=== PATIENT | female | born 1990 | race Caucasian/White ===

== ENCOUNTER 2020-02-21 09:52 | Inpatient (IN) | payer OTHER ==
[2020-02-20 15:57] VITALS: BMI 37.5
[2020-02-21] MEDS ORDERED: LACTATED RINGERS 1,000 ML IV ONE (10:13)
[2020-02-21] MEDS ORDERED: CITRIC ACID-SODIUM CITRATE 15 ML CUP PO ONE (10:13)
[2020-02-21] MEDS: LACTATED RINGERS 1,000 ML IV SCH ×2 (10:22→15:53)
[2020-02-21 10:23] LABS: Glucose,Whole Blood 89 mg/dL (75-99)
[2020-02-21 10:49] LABS: Basophils % (A) 0 %; Eosinophils # (A) 0.1 k/uL (0-0.7); Eosinophils % (A) 1 %; HCT 38.2 % (34.0-46.0); HGB 13.3 gm/dL (11.4-16.0); Lymphocytes # (A) 1.5 k/uL (1.0-4.8); Lymphocytes % (A) 18 %; MCHC 34.8 g/dL (31.0-37.0); Mean Platelet Volume 10.2; Monocytes # (A) 0.3 k/uL (0-1.0); Monocytes % (A) 4 %; Neutrophils # (A) 6.4 k/uL (1.3-7.7); Neutrophils % (A) 75 %; Platelet Count 174 k/uL (150-450); RDW 14.2 % (11.5-15.5); WBC 8.5 k/uL (3.8-10.6)
[2020-02-21] MEDS ORDERED: SUCCINYLCHOLINE CHLORIDE 100 MG/5 ML SYR IV ONE (11:57)
[2020-02-21] MEDS ORDERED: DEXAMETHASONE SOD PHOSPHATE 10 MG/ML 1 ML VIAL ONE (11:57)
[2020-02-21] MEDS ORDERED: GLYCOPYRROLATE 0.2 MG/ML 2 ML VIAL ONE (11:57)
[2020-02-21] MEDS ORDERED: ROCURONIUM 10 MG/ML (10 ML VIAL) IV ONE (11:57)
[2020-02-21] MEDS ORDERED: ONDANSETRON 4 MG/2 ML VIAL ONE (11:57)
[2020-02-21] MEDS ORDERED: KETOROLAC 15 MG/ML 1 ML VIAL ONE (11:57)
[2020-02-21] MEDS ORDERED: fentaNYL (PF) 50 MCG/ML 2 ML AMP ONE (11:57)
[2020-02-21] MEDS ORDERED: MORPHINE SULFATE (PF) 0.3 MG/0.3 ML SYR ONE (11:57)
[2020-02-21] MEDS ORDERED: HYDROcodone/APAP 5-325MG 1 EACH TAB PO PRN (13:15)
[2020-02-21] MEDS ORDERED: HYDROcodone/APAP 7.5-325MG 1 EACH TAB PO PRN (13:15)
[2020-02-21] MEDS ORDERED: METOCLOPRAMIDE 5 MG/ML 2 ML VIAL IVP PRN (13:15)
[2020-02-21] MEDS ORDERED: diphenhydrAMINE 25 MG CAP PO PRN (13:15)
[2020-02-21] MEDS ORDERED: SIMETHICONE 80 MG CHEWABLE PO PRN (13:15)
[2020-02-21] MEDS ORDERED: diphenhydrAMINE 50 MG/ML 1 ML VIAL IVP PRN ×2 (13:15)
[2020-02-21] MEDS ORDERED: diphenhydrAMINE 50 MG CAP PO PRN (13:15)
[2020-02-21] MEDS ORDERED: OXYTOCIN 20 UNITS/1000 ML NS 1,000 ML IV SCH (13:15)
[2020-02-21] MEDS ORDERED: LANOLIN CREAM 5 GM TUBE TOPICAL PRN (13:15)
[2020-02-21] MEDS ORDERED: HYDROmorphone PCA 10 MG/50 ML BAG IV PRN (13:15)
[2020-02-21] MEDS ORDERED: KETOROLAC 15 MG/ML 1 ML VIAL IVP PRN (13:15)
[2020-02-21] MEDS ORDERED: ONDANSETRON 4 MG/2 ML VIAL IVP PRN (13:15)
[2020-02-21] MEDS ORDERED: ZOLPIDEM 5 MG TAB PO PRN (13:15)
[2020-02-21] MEDS ORDERED: NALOXONE 0.4 MG/ML 1 ML VIAL IV PRN ×2 (13:15→13:53)
--- NOTE | 2020-02-21 13:21 | P.HPOB ---
History of Present Illness H&P Date: 02/21/20 Chief Complaint: 39-2/7 weeks, previous section, requesting repeat The patient is a 29-year-old 2 para 1001 admitted at 39-2/7 weeks by good dating parameters. She is admitted for repeat section having had a previous section and requesting repeat. Her has been Dated by gestational diabetes for which she has had excellent diet control throughout. There were no other complications and group B strep status is negative. Obstetrical history: 2 para 1001 with 1 term section for macrosomia. Her statistics are listed in history present illness. EDC of 02/26/2020 was established by last menstrual period and confirmed by 19 week ultrasound. Laboratory workup done Schutze blood type of A+ with a negative antibody screen. Rubella status is immune. The remainder of the laboratory workup was within normal limits. Early Glucola was elevated followed by an elevated three-hour glucose tolerance test making the diagnosis of gestational diabetes. Group B strep status is negative. 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 Review of Systems Review of systems is confined to history of present illness. Past Medical History Past Medical History: No Reported History Additional Past Medical History / Comment(s): gestational diabetes History of Any Multi-Drug Resistant Organisms: None Reported Past Surgical History: Section Past Anesthesia/Blood Transfusion Reactions: No Reported Reaction Past Psychological History: No Psychological Hx Reported Smoking Status: Former smoker Past Alcohol Use History: None Reported Additional Past Alcohol Use History / Comment(s): quit smoking Dec 2019,smoked approx 15 yrs Past Drug Use History: None Reported - Past Family History Mother Family Medical History: No Reported History Father History Unknown: Yes Family Medical History: Diabetes Mellitus, Hypertension Medications and Allergies Home Medications Medication Instructions Recorded Confirmed Type Pnv,Calcium 72/Iron/Folic Acid 1 tab PO DAILY 09/12/14 02/21/20 History [ Plus Tablet] Allergies Allergy/AdvReac Type Severity Reaction Status Date / Time No Known Allergies Allergy Verified 02/21/20 10:13 Exam Vital Signs Temp Pulse Resp BP Pulse Ox 02/21/20 10:12 96.5 F L 102 H 16 140/86 98 Intake and Output 02/20/20 02/21/20 02/21/20 22:59 06:59 14:59 Other: Weight 102.512 kg 102.512 kg In general, this is a well-developed, well-nourished white female in no acute distress. Her heart has a regular rhythm and rate without murmur. Her lungs are clear to auscultation bilaterally in all moore. Her abdomen is gravid, nondistended, has normal active bowel sounds, is soft, nontender, and without any palpable masses aside from uterine fundus. Her strep is without any cyanosis, clubbing, or significant edema and are nontender to palpation bilaterally. Digital cervical examination is deferred. Results Result Diagrams: 02/21/20 10:25 Assessment and Plan (1) Previous section Current Visit: Yes Status: Acute Code(s): Z98.891 - HISTORY OF UTERINE SCAR FROM PREVIOUS SURGERY SNOMED Code(s): 799976172 (2) Term Current Visit: Yes Status: Acute Code(s): Z34.80 - ENCOUNTER FOR SUPRVSN OF NORMAL , UNSP TRIMESTER SNOMED Code(s): 78314328 Plan: The patient is admitted for repeat low transverse section. Uterus and, occasions the procedure been thoroughly discussed and she has understood and agreed to proceed.
--- NOTE | 2020-02-21 13:27 | P.OP ---
Date of Procedure: 02/21/20 Preoperative Diagnosis: #1. 39-2/7 weeks, previous section #2. Gestational diabetes Postoperative Diagnosis: Same Procedure(s) Performed: #1. Repeat low transverse section Anesthesia: LORAINE Surgeon: Vinicius Littlejohn Port Crane Operator #1: Narcisa Gray Estimated Blood Loss (ml): 680 IV fluids (ml): 1,000 Urine output (ml): 400 Pathology: none sent Condition: stable Disposition: floor Operative Findings: The patient was taken the operating room where she was delivered of a viable 8 lbs. 0 oz. baby girl with Apgars of 9 at 1 minute and 9 at 5 minutes delivered in the occiput anterior position. The placenta was delivered manually, intact, and grossly normal with a grossly normal three-vessel cord. The uterus, tubes, and ovaries were entirely normal to inspection. There is mild to moderate amount of scarring at the level of the fascia and rectus muscles. Description of Procedure: The patient was prepped and draped in usual fashion after spinal anesthesia was administered by the anesthesiologist. The spinal failed to achieve adequate levels and the patient was then provided with general endotracheal anesthesia. Once the endotracheal tube had been placed and secured a Pfannenstiel incision was made through pre-existing scar and extended into the abdominal cavity without difficulty. The bladder peritoneum was elevated, incised, and reflected distally. A 2 cm incision was made in the transverse plane of the lower uterine segment to enter the uterus at which time clear fluid was noted. The incision was extended bluntly in both directions. The head was delivered up and through the incision where the nose and mouth were thoroughly suctioned. Remainder of the was delivered onto the field where the cord was doubly clamped, cut, and the infant passed for resuscitative measures with weight and Apgars as noted above. A segment of cord was doubly clamped, cut, and set aside should cord gases become necessary. The placenta was delivered manually and intact as noted above. The uterus was exteriorized and the interior cavity of the uterus swept of any remaining placental or membranous fragments. The margins of the uterine incision were grasped with Ball clamps and the incision closed in 2 layers. First layer was a running locking stitch of 0 chromic catgut followed by a running imbricating stitch of 0 chromic catgut, each from margin to margin. The posterior cul-de-sac was suctioned with a guard and the uterine and ovarian findings were normal as noted above. Uterus was replaced within the abdominal cavity and the gutters swept of any remaining blood, fluid, or clot. There was a point of bleeding at the left angle the incision which was made hemostatic with a eeniyx-js-gcvdw stitch of 0 chromic catgut. After ensuring adequate hemostasis, the parietal peritoneum was loosely reapproximated and layer of muscles examined and found to be hemostatic. The fascia was closed with 2 running stitches of 0 Vicryl proceeding from the lateral margins to the midpoint. The subcutaneous tissues were irrigated, made hemostatic with the Bovie, and reapproximated with a running stitch of 30 plain catgut. The skin was reapproximated with a running subcuticular stitch of 4-0 Vicryl followed by half-inch Steri-Strips placed with Mastisol. Estimated blood loss for the case was approximately 680 mL. There were no complications aside from the ineffective spinal anesthesia requiring Gen. endotracheal anesthesia. All sponge, instrument, needle counts were correct. The patient tolerated the procedure well and proceeded to the recovery room in stable condition. Both mother and infant are resting comfortably in recovery.
[2020-02-21] MEDS ORDERED: MORPHINE SULFATE 2 MG/ML SYRINGE IVP PRN (13:53)
[2020-02-21 16:16] LABS: Hemoglobin A1C 5.1 % (4.0-6.0)
[2020-02-21] MEDS: SENNOSIDES-DOCUSATE SODIUM 1 EACH TAB PO SCH (21:18)
[2020-02-22] MEDS: LACTATED RINGERS 1,000 ML IV SCH ×3 (00:18→21:13)
[2020-02-22 07:34] LABS: Basophils % (A) 0 %; Eosinophils # (A) 0.1 k/uL (0-0.7); Eosinophils % (A) 1 %; HCT 33.7 % (34.0-46.0); HGB 11.5 gm/dL (11.4-16.0); Lymphocytes # (A) 1.9 k/uL (1.0-4.8); Lymphocytes % (A) 17 %; MCH 30.6 pg (25.0-35.0); Mean Platelet Volume 10.4; Monocytes # (A) 0.5 k/uL (0-1.0); Monocytes % (A) 4 %; Neutrophils # (A) 8.8 k/uL (1.3-7.7); Neutrophils % (A) 77 %; Platelet Count 152 k/uL (150-450); RBC 3.75 m/uL (3.80-5.40); RDW 14.5 % (11.5-15.5); WBC 11.5 k/uL (3.8-10.6)
--- NOTE | 2020-02-22 08:25 | P.PNOBGPC ---
Subjective - Subjective Patient reports: Reports appetite normal, Reports voiding normally, Reports pain well controlled, Reports ambulating normally : doing well Objective - Vital Signs Latest vital signs: Vital Signs Temp Pulse Resp BP Pulse Ox 02/22/20 05:32 18 02/22/20 04:31 18 02/22/20 04:30 97.9 F 94 18 120/61 95 02/22/20 02:28 16 02/22/20 00:00 97.7 F 78 18 116/65 96 02/21/20 22:00 18 97 02/21/20 20:30 97.9 F 92 16 117/74 96 02/21/20 18:00 16 02/21/20 16:53 16 02/21/20 15:43 82 16 116/69 98 02/21/20 15:13 80 16 132/79 96 02/21/20 14:53 98 02/21/20 14:43 85 16 119/64 96 02/21/20 14:28 75 16 125/58 99 02/21/20 14:13 82 16 132/76 100 02/21/20 13:58 74 16 124/73 100 02/21/20 13:53 16 100 02/21/20 13:43 96.5 F L 85 16 133/89 96 02/21/20 10:12 96.5 F L 102 H 16 140/86 98 Intake and Output 02/21/20 02/22/20 02/22/20 22:59 06:59 14:59 Output Total 3400 Balance -3400 Output: Urine 3400 Uretheral (Chu) 1200 Other: # Voids 1 - Exam Extremities: Present: normal Abdomen: Present: normal appearance, soft. Absent: distention, tenderness Incision: Present: normal, dry, intact Uterus: Present: normal, firm (The uterine fundus is tonic and appropriate tender just below the umbilicus.) - Labs Labs: Abnormal Lab Results - Last 24 Hours (Table) 02/22/20 Range/Units 07:02 WBC 11.5 H (3.8-10.6) k/uL RBC 3.75 L (3.80-5.40) m/uL Hct 33.7 L (34.0-46.0) % Neutrophils # 8.8 H (1.3-7.7) k/uL Assessment and Plan (1) Previous section Current Visit: Yes Status: Acute Code(s): Z98.891 - HISTORY OF UTERINE SCAR FROM PREVIOUS SURGERY SNOMED Code(s): 023990209 (2) Term Current Visit: Yes Status: Acute Code(s): Z34.80 - ENCOUNTER FOR SUPRVSN OF NORMAL , UNSP TRIMESTER SNOMED Code(s): 74166084 (3) S/P section Current Visit: Yes Status: Acute Code(s): Z98.89 - OTHER SPECIFIED POSTPROCEDURAL STATES * DO NOT USE * SNOMED Code(s): 126320618 Plan: Continue routine postoperative care. 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 She is tolerating regular diet at this time. I would anticipate discharge home tomorrow pending no complications.
[2020-02-22] MEDS: IBUPROFEN 600 MG TAB PO PRN ×3 (08:32→23:49)
[2020-02-22] MEDS: SENNOSIDES-DOCUSATE SODIUM 1 EACH TAB PO SCH ×2 (08:32→20:29)
[2020-02-22] MEDS: ACETAMINOPHEN TAB 325 MG TAB PO PRN ×2 (11:17→20:28)
[2020-02-23] MEDS: ACETAMINOPHEN TAB 325 MG TAB PO PRN (04:39)
[2020-02-23 08:19] VITALS: BP 142/81; PULSE 91; RESP 18; TEMP 97.9
--- NOTE | 2020-02-23 08:39 | P.DS ---
Providers Date of admission: 02/21/20 09:52 Expected date of discharge: 02/23/20 Attending physician: Vinicius Littlejohn Primary care physician: Stated None - Discharge Diagnosis(es) (1) Previous section Current Visit: Yes Status: Acute (2) Term Current Visit: Yes Status: Acute (3) S/P section Current Visit: Yes Status: Acute Hospital Course: The patient is a 29-year-old 2 para 1001 admitted at 39-2/7 weeks by good dating parameters. She is admitted for repeat section with all signs reassuring. Her was complicate by gestational diabetes with excellent diet control throughout. Group B strep status was negative. She was taken the operating room where she was delivered by repeat low transverse section of a viable 8 lbs. 0 oz. baby girl with Apgars of 9 at 1 minute and 9 at 5 minute. Her postoperative course has been unremarkable with vital signs remained stable and her temperature was afebrile throughout. She was deemed stable for discharge on postoperative and day #2 and was discharged home to follow-up in the office in 2 weeks for an incision check and 6 weeks routinely. Discharge instructions included calling for any signifi cantly increased bleeding or foul-smelling lochia, significantly increased fever abdominal pain,. Complaints, breast complaints, incisional complaints, or anything else that concerned her. She was additionally instructed to have nothing in vagina for at least 6 weeks time to include intercourse and to abstain from any heavy lifting over the same period of time. She is Maria Eugenia instructed to do no driving until off of all pain medications or 2 weeks' time, whichever came first. She understood her instructions and agrees to follow up as noted above. Discharge medications included continued vitamins as she has opted to breast-feed as well as a prescription for [place] 5/325 mg, 1-2 by mouth every 6 hours when necessary pain, #20 dispensed with no refills. She was otherwise to use [id number]-ont-ndtnesm analgesic pain medications as needed. Maternal blood type is A+ and rubella status is immune. Discharge hemoglobin and hematocrit were 11.5 and 33.7 respectively. Patient Condition at Discharge: Stable Plan - Discharge Summary Discharge Rx Participant: No New Discharge Prescriptions: No Action Pnv,Calcium 72/Iron/Folic Acid [ Plus Tablet] 1 tab PO DAILY Discharge Medication List Pnv,Calcium 72/Iron/Folic Acid [ Plus Tablet] 1 tab PO DAILY 09/12/14 [History] Follow up Appointment(s)/Referral(s): Vinicius Littlejohn MD [STAFF PHYSICIAN] - 2 Weeks Discharge Disposition: HOME SELF-CARE
[2020-02-23] MEDS: IBUPROFEN 600 MG TAB PO PRN (09:03)
== END 2020-02-23 10:30 | disposition home or self-care (01) | DRG 788 ==
LOC: 4FBP 09:52 → MERGE 12:00
PROVIDERS: ADMIT Obstetrics & Gynecology; ATTEND Obstetrics & Gynecology
PROC: 10D00Z1 Extraction of Products of Conception, Low, Open Approach (ICD-10-PCS; principal; 2020-02-21 12:00)
DX: O34.211 Maternal care for low transverse scar from previous cesarean delivery (principal); O24.420 Gestational diabetes mellitus in childbirth, diet controlled; Z37.0 Single live birth; Z3A.39 39 weeks gestation of pregnancy; Z82.49 Family history of ischemic heart disease and other diseases of the circulatory system; Z83.3 Family history of diabetes mellitus; Z87.891 Personal history of nicotine dependence
CPT/HCPCS: 83036; 85025; 86850; 86900; 86901

== ENCOUNTER 2020-02-26 21:05 | Emergency (ER) | payer OTHER ==
[2020-02-26] MEDS ORDERED: KETOROLAC 15 MG/ML 1 ML VIAL IVP STA (21:56)
--- NOTE | 2020-02-26 22:45 | XR ---
EXAMINATION TYPE: XR chest 2V DATE OF EXAM: 02/26/2020 COMPARISON: NONE HISTORY: Short of breath TECHNIQUE: 2 views FINDINGS: Heart and mediastinum are normal. Lungs are clear. Diaphragm is normal. There is mild thora cic dextroscoliosis. There are no hilar masses. IMPRESSION: No active cardiopulmonary disease.
[2020-02-26 23:09] LABS: Basophils # (A) 0.1 k/uL (0-0.2); Basophils % (A) 1 %; Eosinophils # (A) 0.3 k/uL (0-0.7); Eosinophils % (A) 3 %; HCT 34.5 % (34.0-46.0); HGB 11.6 gm/dL (11.4-16.0); Lymphocytes # (A) 1.9 k/uL (1.0-4.8); Lymphocytes % (A) 20 %; MCHC 33.7 g/dL (31.0-37.0); MCV 88.9 fL (80.0-100.0); Mean Platelet Volume 8.8; Monocytes # (A) 0.3 k/uL (0-1.0); Monocytes % (A) 3 %; Neutrophils # (A) 6.7 k/uL (1.3-7.7); Neutrophils % (A) 71 %; Platelet Count 227 k/uL (150-450); RBC 3.88 m/uL (3.80-5.40); RDW 13.7 % (11.5-15.5); WBC 9.4 k/uL (3.8-10.6)
[2020-02-26 23:12] LABS: Appearance,Urine Clear (Clear); Bilirubin,Urine Negative (Negative); Blood,Urine Small (Negative); Color,Urine Yellow; Glucose,Urine (UA) Negative (Negative); Ketones,Urine Negative (Negative); Leukocyte Esterase,Urine Negative (Negative); Mucus,Urine Rare /hpf; Nitrite,Urine Negative (Negative); PH, Urine 6.5 (5.0-8.0); Protein,Urine Negative (Negative); RBC,Urine 2 /hpf (0-5); Specific Gravity,Urine 1.017 (1.001-1.035); Squamous Epithelial Cell,Urine <1 /hpf (0-4); WBC,Urine 1 /hpf (0-5)
--- NOTE | 2020-02-26 23:21 | US ---
EXAMINATION TYPE: US venous doppler duplex LE LT DATE OF EXAM: 02/26/2020 9:59 PM COMPARISON: NONE CLINICAL HISTORY: LLE swelling s/p . LLE swelling SIDE PERFORMED: Left TECHNIQUE: The lower extremity deep venous system is examined utilizing real time linear array sonog mariela with graded compression, doppler sonography and color-flow sonography. VESSELS IMAGED: Common Femoral Vein Deep Femoral Vein Greater Saphenous Vein * Femoral Vein Popliteal Vein Small Saphenous Vein * Proximal Calf Veins (* superficial vessels) Left Leg: Negative for DVT IMPRESSION: No evidence of deep vein thrombosis in the left leg.
[2020-02-26 23:32] LABS: ALT 22 U/L (4-34); AST 24 U/L (14-36); African American GFR (CKD) >90 (>60 ml/min/1.73 sqM); Alkaline Phosphatase 179 U/L (38-126); Anion Gap 4 mmol/L; Blood Urea Nitrogen 13 mg/dL (7-17); Calcium 8.3 mg/dL (8.4-10.2); Carbon Dioxide 21 mmol/L (22-30); Chloride 113 mmol/L (98-107); Glucose 98 mg/dL (74-99); LDH 737 U/L (313-618); Non-African American GFR(CKD) >90 (>60 ml/min/1.73 sqM); Potassium 4.1 mmol/L (3.5-5.1); Sodium 138 mmol/L (137-145); Total Bilirubin 0.4 mg/dL (0.2-1.3); Total Protein 5.8 g/dL (6.3-8.2); Uric Acid 5.3 mg/dL (3.7-7.4)
--- NOTE | 2020-02-26 23:54 | ED ---
General Adult HPI - General Chief complaint: Extremity Problem,Nontraumatic Stated complaint: Left leg swelling Time Seen by Provider: 02/26/20 21:15 Source: family Mode of arrival: ambulatory Limitations: no limitations - History of Present Illness Initial comments: 29-year-old female patient presents to the emergency department today for evaluation of lower extremity edema. Patient is 5 days post after a delivery with Dr. Littlejohn. Patient reports that she has had swelling to the lower extremities since discharge. She states that the swelling in the right leg seems to improve with the left did not. Patient states she feels like her leg is tight and tingly. States she is having mild discomfort to the calf region. She denies any shortness of breath, cough, or congestion. Denies any chest pain. She is reporting mild headache today. She is breast-feeding. Denies any pain or discharge to her abdominal incision. Denies any urinary symptoms. Patient denies any recent rash, fever, chills, abdominal pain, nausea, vomiting, diarrhea, constipation, back pain, dizziness, weakness, hematuria, dysuria, urinary urgency, urinary frequency, headache, visual changes, or any other complaints. - Related Data Home Medications Medication Instructions Recorded Confirmed Pnv,Calcium 72/Iron/Folic Acid 1 tab PO DAILY 09/12/14 02/21/20 [ Plus Tablet] Allergies Allergy/AdvReac Type Severity Reaction Status Date / Time No Known Allergies Allergy Verified 02/26/20 21:12 Review of Systems ROS Statement: Those systems with pertinent positive or pertinent negative responses have been documented in the HPI. ROS Other: All systems not noted in ROS Statement are negative. Past Medical History Past Medical History: No Reported History Additional Past Medical History / Comment(s): gestational diabetes History of Any Multi-Drug Resistant Organisms: None Reported Past Surgical History: Section, No Surgical Hx Reported Past Anesthesia/Blood Transfusion Reactions: No Reported Reaction Past Psychological History: No Psychological Hx Reported Smoking Status: Former smoker Past Alcohol Use History: None Reported Past Drug Use History: None Reported - Past Family History Mother Family Medical History: No Reported History Father History Unknown: Yes Family Medical History: Diabetes Mellitus, Hypertension General Exam Limitations: no limitations General appearance: alert, in no apparent distress, other (This is a well- developed, well-nourished adult female patient in no acute distress. Vital signs upon presentation temperature 97.9F, pulse 103, respirations 18, blood pressure 140/88, pulse ox 99% on room air.) Eye exam: Present: normal appearance, PERRL, EOMI. Absent: scleral icterus, conjunctival injection, periorbital swelling ENT exam: Present: normal exam, normal oropharynx, mucous membranes moist Respiratory exam: Present: normal lung sounds bilaterally. Absent: respiratory distress, wheezes, rales, rhonchi, stridor Cardiovascular Exam: Present: regular rate, normal rhythm, normal heart sounds. Absent: systolic murmur, diastolic murmur, rubs, gallop, clicks GI/Abdominal exam: Present: soft, normal bowel sounds. Absent: distended, tenderness, guarding, rebound, rigid Extremities exam: Present: full ROM, normal capillary refill, other (There is generalized nonpitting edema noted to the left lower extremity, trace nonpitting edema noted to the right lower extremity. Skin to the legs is pink, warm, dry. Cap refills less than 3 seconds. Pedal and posttibial pulses are 2+ and equal bilaterally.). Absent: normal inspection, tenderness, pedal edema, joint swelling, calf tenderness Neurological exam: Present: alert, oriented X3, CN II-XII intact Psychiatric exam: Present: normal affect, normal mood Skin exam: Present: warm, dry, intact, normal color. Absent: rash Course Vital Signs 02/26/20 02/27/20 21:06 00:03 Temperature 97.9 F 98.2 F Pulse Rate 103 H 90 Respiratory 18 16 Rate Blood Pressure 140/88 117/74 O2 Sat by Pulse 99 96 Oximetry Medical Decision Making - Medical Decision Making 29-year-old female patient presents to the emergency department today for evalua tion of lower extremity swelling worse on the left side. Patient is also reporting mild headache. Physical examination did reveal mild nonpitting edema to the left leg, trace nonpitting edema to the right leg. Neurovascular status was intact. Labs reviewed and did reveal mildly elevated alk phos and LDH. Uric acid was negative. Patient no protein in the urine. Blood pressure initially elevated at 140/88 did decrease to 117/74. I did ultrasound the leg, was negative for DVT. Chest xray shows no evidence for pulmonary edema. Did discuss findings and results with the patient. We did discuss elevation of the legs and use of compression stockings. She is instructed to follow-up with her COLLEGE ADMINISTRATOR for recheck in 1-2 days. Return parameters were discussed in detail. She verbalizes understanding and agrees with this plan. - Lab Data Result diagrams: 02/26/20 22:33 02/26/20 22:33 Lab Results 02/26/20 02/26/20 02/26/20 Range/Units 22:33 22:33 22:33 WBC 9.4 (3.8-10.6) k/uL RBC 3.88 (3.80-5.40) m/uL Hgb 11.6 (11.4-16.0) gm/dL Hct 34.5 (34.0-46.0) % MCV 88.9 (80.0-100.0) fL MCH 30.0 (25.0-35.0) pg MCHC 33.7 (31.0-37.0) g/dL RDW 13.7 (11.5-15.5) % Plt Count 227 (150-450) k/uL MPV 8.8 Neutrophils % 71 % Lymphocytes % 20 % Monocytes % 3 % Eosinophils % 3 % Basophils % 1 % Neutrophils # 6.7 (1.3-7.7) k/uL Lymphocytes # 1.9 (1.0-4.8) k/uL Monocytes # 0.3 (0-1.0) k/uL Eosinophils # 0.3 (0-0.7) k/uL Basophils # 0.1 (0-0.2) k/uL Sodium 138 (137-145) mmol/L Potassium 4.1 (3.5-5.1) mmol/L Chloride 113 H (98-107) mmol/L Carbon Dioxide 21 L (22-30) mmol/L Anion Gap 4 mmol/L BUN 13 (7-17) mg/dL Creatinine 0.66 (0.52-1.04) mg/dL Est GFR (CKD-EPI)AfAm >90 (>60 ml/min/1.73 sqM) Est GFR (CKD-EPI)NonAf >90 (>60 ml/min/1.73 sqM) Glucose 98 (74-99) mg/dL Uric Acid 5.3 (3.7-7.4) mg/dL Calcium 8.3 L (8.4-10.2) mg/dL Total Bilirubin 0.4 (0.2-1.3) mg/dL AST 24 (14-36) U/L ALT 22 (4-34) U/L Alkaline Phosphatase 179 H (38-126) U/L Lactate Dehydrogenase 737 H (313-618) U/L Total Protein 5.8 L (6.3-8.2) g/dL Albumin 3.0 L (3.5-5.0) g/dL Urine Color Yellow Urine Appearance Clear (Clear) Urine pH 6.5 (5.0-8.0) Ur Specific [place] 1.017 (1.001-1.035) Urine Protein Negative (Negative) Urine Glucose (UA) Negative (Negative) Urine Ketones Negative (Negative) Urine Blood Small H (Negative) Urine Nitrite Negative (Negative) Urine Bilirubin Negative (Negative) Urine Urobilinogen 3.0 (<2.0) mg/dL Ur Leukocyte Esterase Negative (Negative) Urine RBC 2 (0-5) /hpf Urine WBC 1 (0-5) /hpf Ur Squamous Epith Cells <1 (0-4) /hpf Urine Mucus Rare H (None) /hpf - Radiology Data Radiology results: report reviewed, image reviewed Two-view x-ray of the chest is obtained. Report was reviewed in its entirety. Impression by Dr. Kohler shows no active cardiopulmonary disease. Ultrasound of the left lower trauma he was obtained. Report is reviewed in its entirety. Impression by Dr. Kohler shows no evidence of deep pain thrombosis in the left leg. Disposition Clinical Impression: Lower extremity edema Disposition: HOME SELF-CARE Condition: Good Instructions (If sedation given, give patient instructions): Leg Edema (ED) Additional Instructions: Keep legs elevated. Consider obtaining compression socks. Follow-up with your COLLEGE ADMINISTRATOR for recheck in 1-2 days. Return to the emergency department immediately for any new, worsening, or concerning symptoms. Is patient prescribed a controlled substance at d/c from ED?: No Referrals: Rebekah Hugo MD [Primary Care Provider] - 1-2 days Vinicius Littlejohn MD [STAFF PHYSICIAN] - 1-2 days Time of Disposition: 23:53
[2020-02-27 00:05] VITALS: BP 117/74; PULSE 90; RESP 16; TEMP 98.2
== END 2020-02-27 00:12 | disposition home or self-care (01) ==
LOC: EC 21:05
DX: R60.0 Localized edema (principal); R51.9 Headache, unspecified; M79.89 Other specified soft tissue disorders; R74.8 Abnormal levels of other serum enzymes; R74.02 Elevation of levels of lactic acid dehydrogenase [LDH]; Z87.891 Personal history of nicotine dependence
CPT/HCPCS: 36415; 80053; 83615; 84550; 85025; 81001; 71046; 93971; 99284; 96374; J1885

== ENCOUNTER 2023-10-05 09:50 | Inpatient (IN) | payer BC, OTHER ==
[2023-10-05] MEDS ORDERED: TRANEXAMIC 1,000 MG/100ML-NACL 1,000 MG in EMPTY BAG 1 BAG IV PRN (10:23)
[2023-10-05] MEDS ORDERED: OXYTOCIN 10 UNIT/ML 1 ML VIAL IM PRN (10:23)
[2023-10-05] MEDS ORDERED: CARBOPROST TROMETHAMINE 250 MCG/ML 1 ML AMP IM PRN (10:23)
[2023-10-05] MEDS ORDERED: miSOPROStoL 200 MCG TAB PO PRN (10:23)
[2023-10-05] MEDS ORDERED: METHYLERGONOVINE 0.2 MG/ML 1 ML AMP IM PRN (10:23)
[2023-10-05 10:41] VITALS: RESP 16
[2023-10-05 11:19] LABS: Basophils % (A) 0 %; Eosinophils # (A) 0.1 k/uL (0-0.7); Eosinophils % (A) 1 %; HCT 38.8 % (34.0-46.0); HGB 12.6 gm/dL (11.4-16.0); Lymphocytes # (A) 1.6 k/uL (1.0-4.8); Lymphocytes % (A) 17 %; MCH 29.7 pg (25.0-35.0); MCHC 32.5 g/dL (31.0-37.0); MCV 91.4 fL (80.0-100.0); Monocytes # (A) 0.4 k/uL (0-1.0); Monocytes % (A) 4 %; Neutrophils # (A) 7.2 k/uL (1.3-7.7); Neutrophils % (A) 76 %; Platelet Count 162 k/uL (150-450); RBC 4.24 m/uL (3.80-5.40); RDW 14.3 % (11.5-15.5); WBC 9.4 k/uL (3.8-10.6)
[2023-10-05] MEDS: LACTATED RINGERS 1,000 ML IV ONE (11:23)
[2023-10-05] MEDS: CITRIC ACID-SODIUM CITRATE 15 ML CUP PO ONE (16:12)
--- NOTE | 2023-10-05 16:19 | P.HPOB ---
History of Present Illness H&P Date: 10/05/23 Chief Complaint: 37+ weeks, previous x 2, spontaneous rupture of m embranes Patient is a 33-year-old 3 para 2-0-0-2 admitted at 37+ weeks as established by last menstrual period and confirmed by 7-week ultrasound. She is admitted with documented spontaneous rupture of membranes for clear fluid. Upon admission, all signs are reassuring with a category 1 heart rate tracing. She is having occasional contractions but not in labor. She has a history of 2 previous sections and has requested a repeat section with intraoperative bilateral tubal ligation, more specifically bilateral salpingectomy. Her was otherwise uncomplicated and group B strep status is negative. Obstetrical history: 3 para 2-0-0-2 with 2 term sections as noted above. EDC of 10/24/2023 was established by last menstrual period con firmed by 7-week ultrasound. Laboratory workup demonstrates a blood type of A+ with a negative antibody screen. Rubella status is immune. The remainder of the laboratory workup was within normal limits. fraction testing was negative for trisomy or any other findings. 1 hour Glucola was within normal limits and group B strep status is negative. Gynecologic history: Unremarkable with no history of any infections to include STDs. Review of Systems Symptoms is confined to history of present illness. Past Medical History Past Medical History: No Reported History Additional Past Medical History / Comment(s): gestational diabetes History of Any Multi-Drug Resistant Organisms: None Reported Past Surgical History: Section Past Anesthesia/Blood Transfusion Reactions: No Reported Reaction Past Psychological History: No Psychological Hx Reported Smoking Status: Current every day smoker Past Alcohol Use History: None Reported Past Drug Use History: None Reported - Past Family History Mother Family Medical History: No Reported History Father History Unknown: Yes Family Medical History: Diabetes Mellitus, Hypertension Medications and Allergies Home Medications Medication Instructions Recorded Confirmed Type Pnv,Calcium 72/Iron/Folic Acid 1 tab PO DAILY 09/12/10/05/23 History [ Plus Tablet] Allergies Allergy/AdvReac Type Severity Reaction Status Date / Time No Known Allergies Allergy Verified 10/05/23 10:02 Exam Vital Signs Temp Pulse Resp BP Pulse Ox 10/05/23 11:02 97.3 F L 100 16 130/77 100 10/05/23 10:36 97.3 F L 100 16 130/77 100 Intake and Output 10/05/23 10/05/23 10/05/23 06:59 14:59 22:59 Other: Weight 99.79 kg General, this is a well-developed, well-nourished white female in no acute distress. Her heart has a regular rhythm and rate without murmur. Her lungs are clear to auscultation bilaterally in all moore. Her abdomen is gravid, nondistended, has normal active bowel sounds, soft, nontender, and without any palpable masses aside from the uterine fundus. Her extremities are without any cyanosis, clubbing, or edema and are nontender to palpation bilaterally. Digital cervical examination is deferred. Results Result Diagrams: 10/05/23 10:35 Assessment and Plan (1) Family planning Current Visit: Yes Status: Acute Code(s): Z30.09 - ENCOUNTER FOR OT GENERAL CNSL AND ADVICE ON CONTRACEPTION SNOMED Code(s): 183131415 (2) Spontaneous rupture of amniotic membranes Current Visit: Yes Status: Acute Code(s): PLE1463 - SNOMED Code(s): 928572624 (3) Previous section Current Visit: Yes Status: Acute Code(s): Z98.891 - HISTORY OF UTERINE SCAR FROM PREVIOUS SURGERY SNOMED Code(s): 414978281 (4) Term Current Visit: Yes Status: Acute Code(s): Z34.80 - ENCOUNTER FOR SUPRVSN OF NORMAL , UNSP TRIMESTER SNOMED Code(s): 75895836 Plan: Patient is admitted for repeat low-transverse section with intraoperative bilateral salpingectomy. The risks and complications of these procedures have been thoroughly discussed and she has understood and agreed to proceed.
[2023-10-05] MEDS ORDERED: PHENYLEPHRINE-0.9% NACL SYG 1,000 MCG/10 ML SYRINGE ONE (16:52)
[2023-10-05] MEDS ORDERED: ONDANSETRON 4 MG/2 ML VIAL ONE (16:52)
[2023-10-05] MEDS ORDERED: OXYTOCIN 30 UNITS/500 ML NS BAG IV ONE (16:52)
[2023-10-05] MEDS ORDERED: MORPHINE SULFATE (PF) 0.3 MG/0.3 ML SYR ONE (16:52)
[2023-10-05] MEDS ORDERED: KETOROLAC 15 MG/ML 1 ML VIAL ONE (16:52)
[2023-10-05] MEDS ORDERED: LANOLIN CREAM 1 GM TUBE TOPICAL PRN (17:51)
[2023-10-05] MEDS ORDERED: KETOROLAC 15 MG/ML 1 ML VIAL IVP PRN (17:51)
[2023-10-05] MEDS ORDERED: ZOLPIDEM 5 MG TAB PO PRN (17:51)
[2023-10-05] MEDS ORDERED: diphenhydrAMINE 25 MG CAP PO PRN (17:51)
[2023-10-05] MEDS ORDERED: diphenhydrAMINE 50 MG CAP PO PRN (17:51)
[2023-10-05] MEDS ORDERED: METOCLOPRAMIDE 5 MG/ML 2 ML VIAL IVP PRN (17:51)
[2023-10-05] MEDS ORDERED: NALOXONE 0.4 MG/ML 1 ML VIAL IV PRN (17:51)
[2023-10-05] MEDS ORDERED: ONDANSETRON 4 MG/2 ML VIAL IVP PRN (17:51)
[2023-10-05] MEDS ORDERED: diphenhydrAMINE 50 MG/ML 1 ML VIAL IVP PRN ×2 (17:51)
[2023-10-05] MEDS ORDERED: SIMETHICONE 80 MG CHEWABLE PO PRN (17:51)
[2023-10-05] MEDS ORDERED: OXYTOCIN 30 UNITS/500 ML NS 30 UNIT in SALINE 1 500ML.BAG IV SCH (18:00)
--- NOTE | 2023-10-05 18:00 | P.OP ---
Date of Procedure: 10/05/23 Preoperative Diagnosis: #1. 37-2/7 weeks, previous section x 2 #2. Spontaneous rupture of membranes #3. Undesired fertility Postoperative Diagnosis: Same Procedure(s) Performed: #1. Repeat low-transverse section #2. Intraoperative bilateral salpingectomy Anesthesia: spinal Surgeon: Vinicius Littlejohn Vacuum Cleaner Repairer #1: Narcisa Gray Estimated Blood Loss (ml): 210 IV fluids (ml): 800 Urine output (ml): 200 Pathology: other (Bilateral fallopian tubes) Condition: stable Disposition: floor Operative Findings: Patient was taken to the operating room where she was delivered of a viable 7 pound 2 ounce baby girl with Apgars of 8 at 1 minute and 9 at 5 minutes in the occiput anterior position. The placenta was delivered manually, intact, grossly normal with a grossly normal three-vessel cord. The uterus, tubes, and ovaries were entirely normal to inspection. After confirming with the patient once again her desire for salpingectomy, both tubes were removed and sent together in a single specimen jar for pathological diagnoses. There was a moderate to significant amount of scarring at the level of the fascia and rectus muscles but the uterus had relatively minimal scarring. Description of Procedure: The patient was prepped and draped in usual fashion after spinal anesthesia was administered by the anesthesiologist. A Pfannenstiel incision was made through pre-existing scar and extended into the abdominal cavity with only minor difficulty at the level of the rectus muscles and fascia secondary to scarring from previous procedures. The bladder peritoneum was noted to be scarred a little bit high and was therefore elevated, incised, and reflected distally. A 2 cm incision was made in the transverse plane of the lower uterine segment to enter the uterus at which time clear fluid was again noted. The incision was extended in both directions using the bandage scissors. The head was encountered in the field and delivered up and through the field where the nose and mouth were thoroughly suctioned after reducing a nuchal cord x 1. The remainder of the was delivered onto the field where the cord was doubly clamped, cut, and the infant passed for resuscitative measures with weight and Apgars as noted above. A segment of cord was then doubly clamped, cut, and set aside should cord gases become necessary. The placenta was delivered manually and intact as noted above. The uterus was exteriorized and the anterior cavity of the uterus swept of any remaining placental or membranous fragments. The margins of the uterine incision were grasped with Ball clamps and the incision closed in a single running locking stitch of 0 chromic catgut from margin to margin. Hemostasis appeared excellent. The posterior cul-de-sac was suctioned with a guard followed by laparotomy sponge. After reaffirming that the patient still desired salpingectomy, the right fallopian tube was extended and removed just beneath the level of the tube through the mesosalpinx using a LigaSure device and carried up to the level of the cornua at which time the tube was transected to remove it from the patient. A similar operation was carried out on the left side without difficulty. After ensuring hemostasis, the uterus was replaced within the abdominal cavity and the gutters swept of any remaining blood, fluid, or clot. The incision was noted to be hemostatic. The parietal peritoneum was loosely reapproximated and the layer of muscles examined and found to be hemostatic. The fascia was closed with a single running stitch of 0 Vicryl proceeding from margin to margin. The subcutaneous tissues were irrigated, made hemostatic with the Bovie, and reapproximated with a running stitch of 3-0 plain catgut. The skin was reapproximated with a running subcuticular stitch of 4-0 Vicryl followed by half-inch Steri-Strips placed with Mastisol. Quantitative blood loss for the case was 210 mL. There were no complications. All sponge, instrument, and needle counts were correct. The patient tolerated the procedure well and proceeded to the recovery room in stable condition. Both mother and are resting comfortably in recovery.
[2023-10-05] MEDS: LACTATED RINGERS 1,000 ML IV SCH ×2 (18:18→21:25)
[2023-10-05] MEDS: SENNOSIDES-DOCUSATE SODIUM 1 EACH TAB PO SCH (21:29)
[2023-10-05] MEDS: ACETAMINOPHEN TAB 500 MG TAB PO SCH (21:30)
[2023-10-05] MEDS: IBUPROFEN 600 MG TAB PO SCH (23:54)
--- NOTE | 2023-10-06 07:45 | P.PN ---
Progress Note - Text Progress Note Date: 10/06/23 Anesthesia Postop day 1 Subjective: Status Post section with Duramorph. Patient seen and examined. Doing well without complaint. VAS 2 out of 10. No nausea vomiting or pruritus. Denies fever. Gross lower extremity strength intact. Without apparent anesthetic complications. Objective: Vital signs reviewed Heart: Regular Rate Lungs: Good chest excursion Abdomen: Appears nondistended Assessment: Status post section with Duramorph postop day 1 Plan: 1. Continue current care with your medical management. Anticipated end to the duration of the Duramorph around surgery time today. You may see increased pain needs around this time. 2. This note was dictated using globa.ly software. Please be advised there is a potential for misspellings or errors in industrial fabric cutter.
--- NOTE | 2023-10-06 08:52 | P.PNOBGPC ---
Subjective - Subjective Patient reports: Reports appetite normal, Reports voiding normally, Reports pain well controlled, Reports ambulating normally : doing well Objective - Vital Signs Latest vital signs: Vital Signs Temp Pulse Resp BP Pulse Ox 10/06/23 05:45 82 16 111/66 97 10/05/23 21:45 98.3 F 91 16 111/70 94 L 10/05/23 19:45 86 16 123/64 100 10/05/23 19:30 93 16 127/60 100 10/05/23 19:15 85 16 121/59 97 10/05/23 19:00 91 16 116/63 100 10/05/23 18:45 89 16 119/58 96 10/05/23 18:30 91 16 114/56 99 10/05/23 18:15 104 H 16 124/66 98 10/05/23 18:00 103 H 16 101/52 97 10/05/23 17:45 96.8 F L 105 H 16 113/50 98 10/05/23 11:02 97.3 F L 100 16 130/77 100 10/05/23 10:36 97.3 F L 100 16 130/77 100 Intake and Output 10/05/23 10/06/23 10/06/23 22:59 06:59 14:59 Intake Total 800 Output Total 489 550 Balance 311 -550 Intake: IV 800 Output: Urine 200 550 Uretheral (Chu) 250 Output, Quantitative 289 Blood Loss - Exam Extremities: Present: normal Abdomen: Present: normal appearance, soft. Absent: distention, tenderness Incision: Present: normal, dry, intact Uterus: Present: normal, firm (The uterine fundus is tonic and minimally tender below the umbilicus.) Assessment and Plan (1) Family planning Current Visit: Yes Status: Acute Code(s): Z30.09 - ENCOUNTER FOR OT GENERAL CNSL AND ADVICE ON CONTRACEPTION SNOMED Code(s): 965946088 (2) Spontaneous rupture of amniotic membranes Current Visit: Yes Status: Acute Code(s): XLE7574 - SNOMED Code(s): 790314540 (3) Previous section Current Visit: Yes Status: Acute Code(s): Z98.891 - HISTORY OF UTERINE SCAR FROM PREVIOUS SURGERY SNOMED Code(s): 391876712 (4) Term Current Visit: Yes Status: Acute Code(s): Z34.80 - ENCOUNTER FOR SUPRVSN OF NORMAL , UNSP TRIMESTER SNOMED Code(s): 69300293 (5) S/P section Current Visit: Yes Status: Acute Code(s): Z98.89 - OTHER SPECIFIED POSTPROCEDURAL STATES * DO NOT USE * SNOMED Code(s): 638987077 Plan: Continue routine and postoperative care. I would anticipate discharge home tomorrow pending no complications. I have encouraged the patient to ambulate in the hallways routinely.
[2023-10-06 09:13] LABS: Basophils % (A) 0 %; Eosinophils % (A) 0 %; HCT 41.1 % (34.0-46.0); Lymphocytes # (A) 1.7 k/uL (1.0-4.8); Lymphocytes % (A) 17 %; MCH 29.6 pg (25.0-35.0); MCHC 31.6 g/dL (31.0-37.0); MCV 93.6 fL (80.0-100.0); Mean Platelet Volume 10.6; Monocytes # (A) 0.4 k/uL (0-1.0); Monocytes % (A) 4 %; Neutrophils # (A) 7.6 k/uL (1.3-7.7); Neutrophils % (A) 77 %; Platelet Count 156 k/uL (150-450); RBC 4.39 m/uL (3.80-5.40); RDW 14.2 % (11.5-15.5); WBC 9.9 k/uL (3.8-10.6)
[2023-10-07 08:12] VITALS: BP 133/83; PULSE 77; TEMP 98
--- NOTE | 2023-10-07 08:51 | P.DS ---
Providers Date of admission: 10/05/23 10:24 Expected date of discharge: 10/07/23 Attending physician: Vinicius Littlejohn Primary care physician: Stated None - Discharge Diagnosis(es) (1) Family planning Current Visit: Yes Status: Acute (2) Spontaneous rupture of amniotic membranes Current Visit: Yes Status: Acute (3) Previous section Current Visit: Yes Status: Acute (4) Term Current Visit: Yes Status: Acute (5) S/P section Current Visit: Yes Status: Acute Hospital Course: The patient is a 33-year-old 3 para 2-0-0-2 admitted at 37+ weeks by good dating parameters. She is admitted with documented spontaneous rupture of membranes and a history of 2 previous sections requesting repeat with intraoperative bilateral salpingectomy for control. Her was essentially uncomplicated and group B strep status is negative. On labor and delivery, she a category 1 heart rate tracing. She was taken to the operating room where she was delivered of a viable 7 pound 2 ounce baby girl with Apgars of 8 at 1 minute and 9 at 5 minutes. She did undergo intraoperative bilateral salpingectomy. Her and postoperative course was entirely unremarkable with vital signs remaining stable and her temperature was afebrile throughout. She was deemed stable for discharge on and postoperative day #2. She was discharged home to follow-up in the office in 2 weeks for an incision check in 6 weeks routinely. Discharge instructions included calling for any significantly increased bleeding or foul-smelling lochia, significantly increased fever or abdominal pain, perineal complaints, breast complaints, incisional complaints, or anything else that concerned her. She was additionally instructed to have nothing in the vagina for at least 6 weeks time to include intercourse and to abstain from any heavy lifting over the same period of time. She was lastly instructed to do no driving until off of all pain medications or 2 weeks time, whichever came first. She understood her instructions and agreed to follow-up as noted above. Discharge medications included continued vitamins as she has opted to breast-feed. She was provided with a prescription for Tylenol 3, 1-2 p.o. every 6 hours as needed pain, #20 dispensed with no refills. She was additionally to use [id number] analgesic pain medications as needed. Maternal blood type is a positive and rubella status is immune. Discharge hemoglobin and hematocrit were 13.0 and 41.1 respectively. Procedures: #1. Repeat low-transverse section #2. Intraoperative bilateral salpingectomy Patient Condition at Discharge: Stable Plan - Discharge Summary New Discharge Prescriptions: No Action Pnv,Calcium 72/Iron/Folic Acid [ Plus Tablet] 1 tab PO DAILY Discharge Medication List Pnv,Calcium 72/Iron/Folic Acid [ Plus Tablet] 1 tab PO DAILY 09/12/14 [History] Follow up Appointment(s)/Referral(s): Vinicius Littlejohn MD [STAFF PHYSICIAN] - 2 Weeks Discharge Disposition: HOME SELF-CARE
== END 2023-10-07 12:20 | disposition home or self-care (01) | DRG 785 ==
LOC: FBPOP 09:50 → 4FBP 10:24
PROVIDERS: ADMIT Obstetrics & Gynecology; ATTEND Obstetrics & Gynecology
PROC: 10D00Z1 Extraction of Products of Conception, Low, Open Approach (ICD-10-PCS; principal; 2023-10-05 16:30)
PROC: 0UT70ZZ Resection of Bilateral Fallopian Tubes, Open Approach (ICD-10-PCS; principal; 2023-10-05 16:30)
DX: O34.211 Maternal care for low transverse scar from previous cesarean delivery (principal); F17.210 Nicotine dependence, cigarettes, uncomplicated; O99.334 Smoking (tobacco) complicating childbirth; Z30.2 Encounter for sterilization; Z37.0 Single live birth; Z86.32 Personal history of gestational diabetes; Z3A.37 37 weeks gestation of pregnancy
CPT/HCPCS: 59025; 85025; 86850; 86900; 86901; 88302; 99213